=== PATIENT | female | born 2000 | race Two or more races ===

== ENCOUNTER 2023-10-28 10:42 | Emergency (ER) | payer OTHER ==
[~2023-10-28] VITALS: Ht 160 cm; Wt 64.9 kg
[2023-10-28] MEDS ORDERED: TRI-SPRINTEC T1 EACH PO (10:56)
[2023-10-28] MEDS ORDERED: MORGIDOX100 MG PO (10:56)
== END 2023-10-28 14:58 | disposition home or self-care (01) ==
LOC: ER 10:42
DX: J34.0 Abscess, furuncle and carbuncle of nose (principal); T17.1XXA Foreign body in nostril, initial encounter